=== PATIENT | male | born 1940 | race Caucasian/White ===

== ENCOUNTER → 2019-05-07 | Outpatient (CLI) | payer OTHER ==
--- NOTE | 2019-05-07 11:16 | PCVCIMAG ---
APPROVED REPORT Study performed: 05/07/2019 09:58:12 EXAM: Comprehensive 2D, Doppler, and color-flow Echocardiogram Patient Location: Echo lab Status: routine BSA: 2.25 HR: 68 bpmBP: 120/84 mmHg Rhythm: NSR Other Information Study Quality: Adequate Risk Factors: Cardiac Risk Factors: HTN, Hyperlipidemia Indications CVA/TIA hx PFO 2D Dimensions IVSd: 11.84 (7-11mm) LVDd: 39.68 mm PWd: 12.48 (7-11mm)Ascending Ao: 38.56 (22-36mm) LVDs: 32.50 (25-40mm) Left Atrium: 29.55 (27-40mm) Aortic Root: 32.98 mm LV Single Plane 4CH: 50.73 % LV Single Plane 2CH: 58.24 % Biplane EF: 54.1 % Volumes Left Atrial Volume (Systole) Single Plane 4CH: 64.78 mLSingle Plane 2CH: 62.54 mL LA ESV Index: 28.00 mL/m2 Aortic Valve AoV Peak Enrique.: 1.33 m/s AO Peak Gr.: 7.05 mmHgLVOT Max P.70 mmHg LVOT Max V: 0.96 m/s Mitral Valve E/A Ratio: 0.9 MV Decel. Time: 269.72 ms MV E Max Enrique.: 0.51 m/s MV A Enrique.: 0.60 m/s IVRT: 138.41 ms Pulmonary Valve PV Peak Enrique.: 1.05 m/sPV Peak Gr.: 4.37 mmHg Pulmonary Vein P Vein S: 0.34 m/sP Vein A: 0.36 m/s P Vein D: 0.49 m/sP Vein A Dur.: 124.6 msec P Vein S/D Ratio: 0.69 Tricuspid Valve TR Peak Enrique.: 2.50 m/s TR Peak Gr.: 25.10 mmHg TV Vmax: 0.56 m/s Left Ventricle The left ventricle is normal size. There is normal LV segmental wall motion. Mild concentric left ventricular hypertrophy. Left ventricular systolic function is within lower limits of normal. LVEF is 50-55%. Grade I - abnormal relaxation pattern. Right Ventricle The right ventricle is normal size. The right ventricular systolic function is normal. Atria The left atrium size is normal. The right atrium size is normal. Aortic Valve The aortic valve is normal in structure. No aortic regurgitation is present. There is no aortic valvular stenosis. Mitral Valve The mitral valve is normal in structure. There is no mitral valve regurgitation noted. No evidence of mitral valve stenosis. Tricuspid Valve The tricuspid valve is normal in structure. Mild tricuspid regurgitation with PAP of 32 mmHg. Pulmonic Valve The pulmonary valve is normal in structure. Trace pulmonic regurgitation. Great Vessels The aortic root is normal in size. The ascending aorta is borderline dilated to 3.9 cm. IVC is normal in size and collapses >50% with inspiration. Pericardium There is no pericardial effusion. There is no pleural effusion. <Conclusion> The left ventricle is normal size. Mild concentric left ventricular hypertrophy. LVEF is 50-55%. Grade I - abnormal relaxation pattern. The right ventricle is normal size. The left atrium size is normal. The left atrium size is normal. The aortic valve is normal in structure. There is no mitral valve regurgitation noted. Mild tricuspid regurgitation with PAP of 32 mmHg. The aortic root is normal in size. The ascending aorta is borderline dilated to 3.9 cm. There is no pericardial effusion.
== END | disposition home or self-care (01) ==
LOC: PCVCIMAG 09:39
PROVIDERS: ATTEND Internal Medicine Cardiovascular Disease
DX: I11.9 Hypertensive heart disease without heart failure (principal); I07.1 Rheumatic tricuspid insufficiency; E78.5 Hyperlipidemia, unspecified; Z86.73 Personal history of transient ischemic attack (TIA), and cerebral infarction without residual deficits; Z88.8 Allergy status to other drugs, medicaments and biological substances; J45.909 Unspecified asthma, uncomplicated; Z96.653 Presence of artificial knee joint, bilateral; Z82.3 Family history of stroke
CPT/HCPCS: 93306